=== PATIENT | female | born 1940 | race Caucasian/White ===

== ENCOUNTER 2024-07-25 07:18 | Day surgery (SDC) | payer OTHER ==
[2024-07-25] VITALS (11 sets, daily range): BP systolic 136–167; BP diastolic 63–83; PULSE 69–81; RESP 14–20; TEMP 96.5–98.1
[~2024-07-25] VITALS: Ht 154.9 cm; Wt 77.1 kg
[2024-07-25] MEDS ORDERED: AMLO-257 PO (08:05)
[2024-07-25] MEDS ORDERED: HYDR-3421 PO (08:05)
[2024-07-25] MEDS ORDERED: OMEP40CA21 PO (08:05)
[2024-07-25] MEDS ORDERED: 0.9%NACL 1000ML 1,000 ML IV ONE (08:19)
[2024-07-25] MEDS ORDERED: proPOFol 10 MG/ML 20ML VIAL IV ONE (10:02)
== END 2024-07-25 11:45 | disposition home or self-care (01) ==
LOC: ENDO 07:18 → DAH 07:18 → ENDO 11:45
PROVIDERS: ATTEND Internal Medicine Gastroenterology
DX: K22.2 Esophageal obstruction (principal); K21.00 Gastro-esophageal reflux disease with esophagitis, without bleeding; K44.9 Diaphragmatic hernia without obstruction or gangrene; B96.81 Helicobacter pylori [H. pylori] as the cause of diseases classified elsewhere; I10 Essential (primary) hypertension; E78.5 Hyperlipidemia, unspecified; F32.A Depression, unspecified; Z90.710 Acquired absence of both cervix and uterus; Z96.659 Presence of unspecified artificial knee joint; Z79.899 Other long term (current) drug therapy
CPT/HCPCS: 43249; 43239; J7030; J2704; C1726; A4620; A4215 ×2; A4223; A7002; A4222; A4221; A4663; A4606; J3490